=== PATIENT | female | born 1940 | race African-American/Black ===

== ENCOUNTER 2022-06-03 20:41 | Emergency (ER) | payer MEDICAID, MEDICARE ==
[~2022-06-03] VITALS: Ht 167.6 cm; Wt 63.0 kg
[~2022-06-03 20:41] MED LIST: CLOP75TA33; ENAL20TA18; FERR-71; LABE200T9; PRAZ2CAP2
[2022-06-04 07:15] VITALS: BP 150/90
== END 2022-06-04 07:50 | disposition home or self-care (01) ==
LOC: ER 20:41
DX: S00.83XA Contusion of other part of head, initial encounter (principal); W18.39XA Other fall on same level, initial encounter; Y93.89 Activity, other specified; Y92.89 Other specified places as the place of occurrence of the external cause; Y99.8 Other external cause status; I10 Essential (primary) hypertension; Z86.73 Personal history of transient ischemic attack (TIA), and cerebral infarction without residual deficits
CPT/HCPCS: 71045; 73620; 73630; 93005; 99285

== ENCOUNTER 2022-06-19 17:40 | Emergency (ER) | payer MEDICAID ==
[~2022-06-19] VITALS: Ht 160 cm; Wt 75.0 kg
[2022-06-19 17:55] VITALS: BP 148/97
[2022-06-19 20:33] LABS: BASOPHILS % 0.6 % (0.0-2.0); HEMATOCRIT. 33.2 % (36.0-48.0); HEMOGLOBIN. 10.1 g/dL (12.0-16.0); LYMPHOCYTES % 18.2 % (20.0-50.0); MEAN CORPUSCULAR HEMOGLOBIN 20.5 pg (28.0-32.0); MEAN CORPUSCULAR VOLUME 67.7 fL (81.0-99.0); MEAN PLATELET VOLUME 7.9 fl (7.4-10.4); MONOCYTES % 10.6 % (2.0-8.0); NEUTROPHILS % 68.6 % (40.0-76.0); PLATELET 347 x1000/uL (130-400); RED BLOOD CELL COUNT 4.91 mill/uL (4.2-5.4); RED CELL DISTRIBUTION WIDTH 17.4 % (11.6-14.6)
[2022-06-19 20:51] LABS: CHLORIDE 104 mEq/L (98-107)
[2022-06-19 21:20] LABS: PLATELET ESTIMATE NORMAL
[2022-06-19 23:05] LABS: CLARITY URINE CLEAR (CLEAR); COLOR URINE YELLOW (YELLOW); KETONES URINE TRACE (NEGATIVE); LEUKOCYTE ESTERASE URINE NEGATIVE (NEGATIVE); NITRITE URINE NEGATIVE (NEGATIVE); OCCULT BLOOD URINE NEGATIVE (NEGATIVE); PH URINE 5.5 (4.5-8.0); PROTEIN URINE 3+ (NEGATIVE); SPECIFIC GRAVITY URINE 1.019 (1.005-1.030)
[2022-06-19] MEDS ORDERED: METR-167 MT (23:27)
== END 2022-06-20 00:15 | disposition home or self-care (01) ==
LOC: ER 17:40
DX: N76.0 Acute vaginitis (principal); I10 Essential (primary) hypertension; E78.5 Hyperlipidemia, unspecified; F03.90 Unspecified dementia, unspecified severity, without behavioral disturbance, psychotic disturbance, mood disturbance, and anxiety; Z86.73 Personal history of transient ischemic attack (TIA), and cerebral infarction without residual deficits; Z20.822 Contact with and (suspected) exposure to COVID-19
CPT/HCPCS: 36415; 71045; 80053; 81003; 85025; 87426; 99284; C9803

== ENCOUNTER 2023-03-05 14:59 | Emergency (ER) | payer MEDICAID, MEDICARE, OTHER ==
[~2023-03-05] VITALS: Ht 172.7 cm; Wt 75.0 kg
[~2023-03-05 14:59] MED LIST changes: -FERR-71; +FERR325T6 MT
[2023-03-05] MEDS ORDERED: ONDANSETRON HCL 4MG/2ML INJ IV STA (15:35)
[2023-03-05] MEDS ORDERED: MORPHINE SULFATE 4 MG/ML CPJ (NOT FOR IM USE) IV STA (15:35)
[2023-03-05] MEDS ORDERED: SODIUM CHLORIDE 0.9% 500 ML IV ONE (15:45)
[2023-03-05 17:39] LABS: BASOPHILS % 0.1 % (0.0-2.0); HEMATOCRIT. 41.1 % (36.0-48.0); HEMOGLOBIN. 12.5 g/dL (12.0-16.0); LYMPHOCYTES % 8.2 % (20.0-50.0); MEAN CORPUSCULAR VOLUME 72.3 fL (81.0-99.0); MEAN PLATELET VOLUME 8.8 fl (7.4-10.4); MONOCYTES % 4.6 % (2.0-8.0); NEUTROPHILS % 87.1 % (40.0-76.0); PLATELET 194 x1000/uL (130-400); RED BLOOD CELL COUNT 5.69 mill/uL (4.2-5.4); RED CELL DISTRIBUTION WIDTH 18.2 % (11.6-14.6)
[2023-03-05 17:45] LABS: PROTHROMBIN TIME 11.2 sec (9.6-11.0)
[2023-03-05 17:46] LABS: CHLORIDE 103 mEq/L (98-107)
[2023-03-05 17:47] VITALS: BP 134/91
[2023-03-05] MEDS ORDERED: LEVOFLOXACIN 750MG PREMIX 150 ML IV ONE (18:15)
[2023-03-05] MEDS ORDERED: LEVO750T68 MT (18:41)
== END 2023-03-05 21:04 | disposition home or self-care (01) ==
LOC: ER 14:59
DX: J18.9 Pneumonia, unspecified organism (principal); F03.90 Unspecified dementia, unspecified severity, without behavioral disturbance, psychotic disturbance, mood disturbance, and anxiety; I10 Essential (primary) hypertension; Z86.73 Personal history of transient ischemic attack (TIA), and cerebral infarction without residual deficits
CPT/HCPCS: 36415; 71045; 74018; 80053; 83605; 83690; 84484; 85025; 85610; 96361; 96365; 99284; J1956; J7040; 99285

== ENCOUNTER 2023-12-27 15:40 | Emergency (ER) | payer MEDICARE, MEDICAID ==
[~2023-12-27] VITALS: Ht 160 cm; Wt 64.0 kg
[~2023-12-27 15:40] MED LIST changes: +ENAL-79; -ENAL20TA18; +LEVO750T68 MT
[2023-12-27 15:53] VITALS: O2SAT 100
[2023-12-27 16:28] VITALS: TEMP 97.7
[2023-12-27] MEDS: ACETAMINOPHEN 325MG TABLET PO ONE (16:35)
[2023-12-27 16:46] LABS: BASOPHILS % 0.9 % (0.0-2.0); DIFFERENTIAL COMMENT 0; EOSINOPHILS % 3.8 % (0.0-5.0); HEMATOCRIT. 30.3 % (36.0-48.0); HEMOGLOBIN. 9.2 g/dL (12.0-16.0); LYMPHOCYTES % 23.7 % (20.0-50.0); MEAN CORPUSCULAR HGB CONC 30.4 g/dL (31.0-37.0); MEAN CORPUSCULAR VOLUME 72.6 fL (81.0-99.0); MEAN PLATELET VOLUME 8.1 fl (7.4-10.4); MONOCYTES % 13.2 % (2.0-8.0); NEUTROPHILS % 58.4 % (40.0-76.0); PLATELET 248 x1000/uL (130-400); RED BLOOD CELL COUNT 4.18 mill/uL (4.2-5.4); RED CELL DISTRIBUTION WIDTH 16.7 % (11.6-14.6); WHITE BLOOD COUNT 6.5 x1000/uL (4.5-11.0)
[2023-12-27 16:58] LABS: ALANINE AMINOTRANSFERASE < 7 IU/L (10-49); ALBUMIN 3.6 g/dL (3.2-4.8); ASPARTATE AMINOTRANSFERASE 19 IU/L (<34); BILIRUBIN TOTAL 0.3 mg/dL (0.1-1.0); CALCIUM 9.2 mg/dL (8.7-10.4); CARBON DIOXIDE 30 mEq/L (21-32); CHLORIDE 103 mEq/L (98-107); CREATININE 0.7 mg/dL (0.6-1.0); GLUCOSE 80 mg/dL (70-105); POTASSIUM 3.8 mEq/L (3.5-5.1); PROTEIN TOTAL 7.6 g/dL (6.0-8.3); SODIUM 137 mEq/L (136-145); UREA NITROGEN BLOOD 12 mg/dL (9-23)
[2023-12-27 17:05] LABS: TROPONIN I HIGH SENSITIVITY 54 ng/L (3.0-34)
[2023-12-27] MEDS: ASPIRIN 81MG TABLET PO ONE (18:38)
[2023-12-27 19:17] LABS: TROPONIN I HIGH SENSITIVITY 67 ng/L (3.0-34)
[2023-12-27 21:25] VITALS: BP 152/97; PULSE 70; RESP 16
== END 2023-12-27 22:14 | disposition home or self-care (01) ==
LOC: ER 15:40 → EDBEDREQ 21:44 → EDBEDREQTM 21:44 → ER 22:14
DX: I71.43 Infrarenal abdominal aortic aneurysm, without rupture (principal); R79.89 Other specified abnormal findings of blood chemistry; I10 Essential (primary) hypertension; Z86.73 Personal history of transient ischemic attack (TIA), and cerebral infarction without residual deficits
CPT/HCPCS: 36415; 71045; 71275; 74174; 74176; 80053; 83880; 84484; 85025; 93005; 99291

== ENCOUNTER 2024-04-12 17:15 | Inpatient (IN) | payer MEDICARE, MEDICAID ==
[~2024-04-12] VITALS: Ht 170.2 cm; Wt 55.3 kg
[2024-04-12] MEDS: SODIUM CHLORIDE 0.9% 1000ML BAG (SEPSIS BOLUS) IV ONE (19:54)
[2024-04-12] MEDS: CEFTRIAXONE 1GM/50ML 50 ML IV ONE (19:56)
[2024-04-12 20:14] LABS: BASOPHILS % 0.8 % (0.0-2.0); EOSINOPHILS % 0.3 % (0.0-5.0); HEMATOCRIT. 34.7 % (36.0-48.0); HEMOGLOBIN. 10.6 g/dL (12.0-16.0); LYMPHOCYTES % 12.1 % (20.0-50.0); MEAN CORPUSCULAR HEMOGLOBIN 21.1 pg (28.0-32.0); MEAN CORPUSCULAR HGB CONC 30.7 g/dL (31.0-37.0); MEAN CORPUSCULAR VOLUME 68.8 fL (81.0-99.0); MEAN PLATELET VOLUME 8.2 fl (7.4-10.4); MONOCYTES % 7.7 % (2.0-8.0); NEUTROPHILS % 79.1 % (40.0-76.0); PLATELET 352 x1000/uL (130-400); RED BLOOD CELL COUNT 5.04 mill/uL (4.2-5.4); WHITE BLOOD COUNT 8.1 x1000/uL (4.5-11.0)
[2024-04-12] MEDS: LABETALOL 5MG/ML 4ML INJ IV NR (20:21)
[2024-04-12 20:23] LABS: CARBON DIOXIDE 28 mEq/L (21-32); CHLORIDE 105 mEq/L (98-107); POTASSIUM 3.4 mEq/L (3.5-5.1); SODIUM 139 mEq/L (136-145)
[2024-04-12] MEDS: VANCOMYCIN 1G PREMIX 200 ML IV SCH (20:24)
[2024-04-12 20:25] LABS: CALCIUM 9.5 mg/dL (8.7-10.4)
[2024-04-12 20:29] LABS: CREATININE 0.6 mg/dL (0.6-1.0); GLUCOSE 103 mg/dL (70-105)
[2024-04-12 20:30] LABS: UREA NITROGEN BLOOD 11 mg/dL (9-23)
[2024-04-12 20:36] LABS: ADD RBC MORPHOLOGY YES; DIFFERENTIAL COMMENT 1
[2024-04-12 23:14] LABS: ANISOCYTOSIS 2+; HYPOCHROMASIA 1+
[2024-04-12 23:15] LABS: MICROCYTOSIS 1+; PLATELET ESTIMATE NORMAL
[2024-04-13] MEDS ORDERED: ONDANSETRON HCL 4MG/2ML INJ IV PRN (02:15)
[2024-04-13] MEDS ORDERED: GUAIFENESIN 200MG/10ML SUGAR FREE UDC PO PRN (02:15)
[2024-04-13] MEDS ORDERED: DOCUSATE SODIUM 100MG CAPSULE PO PRN (02:15)
[2024-04-13] MEDS ORDERED: IPRATROPIUM/ALBUTEROL 0.5-3(2.5)MG/3ML NEB HHN PRN (02:15)
[2024-04-13] MEDS ORDERED: ACETAMINOPHEN 325MG TABLET PO PRN (02:15)
[2024-04-13] MEDS ORDERED: MAGNESIUM/ALUMINUM HYDROXIDE/SIMETHICONE 30ML UDC PO PRN (02:15)
[2024-04-13] MEDS: DEXT 5%/0.45% NACL 1000ML 1,000 ML IV SCH (03:24)
[2024-04-13] MEDS: KCL 20MEQ/100ML PREMIX 100 ML IV NR (03:40)
[2024-04-13] MEDS: PIPERACILLIN/TAZO 3.375G/50ML 50 ML IV SCH (06:12)
[2024-04-13 06:19] LABS: IRON 19 ug/dL (50-170)
[2024-04-13 06:20] LABS: TROPONIN I HIGH SENSITIVITY 21 ng/L (3.0-34)
[2024-04-13 06:22] LABS: CREATINE KINASE 160 IU/L (34-145); PHOSPHORUS 2.4 mg/dL (2.5-4.9); TOTAL IRON BINDING CAPACITY 207 ug/dl (250-425)
[2024-04-13 06:26] LABS: FERRITIN 75 ng/mL (10-291)
[2024-04-13 06:27] LABS: FOLIC ACID (FOLATE) SERUM > 20.00 ng/mL (>5.38); VITAMIN B12 SERUM 752 pg/mL (211-911)
[2024-04-13 07:55] LABS: PROTHROMBIN TIME 11.3 sec (9.6-11.0)
[2024-04-13] MEDS ORDERED: IOHEXOL-350 100 ML BOTTLE ONE (08:45)
[2024-04-13] MEDS: CLONIDINE 0.1MG TABLET PO PRN (09:16)
[2024-04-13 11:33] VITALS: BP 165/110; PULSE 83; RESP 14; TEMP 97.7
[2024-04-13] MEDS: PANTOPRAZOLE SODIUM 40 MG/VIAL IV SCH (11:34)
[2024-04-13] MEDS: LOSARTAN 25 MG TABLET PO SCH (11:34)
[2024-04-13] MEDS: LABETALOL HCL 200MG TABLET PO SCH (11:35)
[2024-04-13] MEDS: VANCOMYCIN 500MG/100ML IV SCH (11:57)
[2024-04-13] MEDS: HYDRALAZINE 20MG/ML VIAL IV PRN (12:39)
[2024-04-13] MEDS: LOSARTAN 25 MG TABLET PO NR (12:40)
[2024-04-13] MEDS: POTASSIUM PHOSPHATE 15 MMOL in DEXT 5% WATER 245 ML IV NR (12:44)
[2024-04-13] MEDS: MAGNESIUM 2 G PREMIX 50 ML IV NR (13:41)
[2024-04-13 14:10] VITALS: BP 163/98; PULSE 83; RESP 14; TEMP 97.1
[2024-04-13] MEDS ORDERED: CLOB15OI21 TP (15:52)
[2024-04-13] MEDS ORDERED: ASPI-1406 PO (15:52)
[2024-04-13] MEDS ORDERED: FURO20TA4 PO (15:52)
[2024-04-13 15:54] LABS: TROPONIN I HIGH SENSITIVITY 31 ng/L (3.0-34)
[2024-04-13 15:55] LABS: CREATINE KINASE 253 IU/L (34-145)
[2024-04-13 16:00] VITALS: BP 121/79; PULSE 70; RESP 18; TEMP 97.7
[2024-04-13] MEDS: FERROUS SULFATE 325MG TABLET PO SCH (16:52)
[2024-04-13 19:29] LABS: CLARITY URINE CLEAR (CLEAR); COLOR URINE YELLOW (YELLOW); GLUCOSE URINE NEGATIVE (NEGATIVE); KETONES URINE NEGATIVE (NEGATIVE); LEUKOCYTE ESTERASE URINE NEGATIVE (NEGATIVE); NITRITE URINE NEGATIVE (NEGATIVE); OCCULT BLOOD URINE NEGATIVE (NEGATIVE); PH URINE 6.5 (4.5-8.0); PROTEIN URINE TRACE (NEGATIVE); SPECIFIC GRAVITY URINE 1.047 (1.005-1.030)
[2024-04-13 19:59] LABS: BACTERIA URINE 1+; RBC URINE 0-2 /hpf (0-2); SQUAMOUS EPITHELIAL CELL URINE FEW /lpf (RARE/1+); WBC URINE 0-2 /hpf (0-2)
[2024-04-13 20:00] VITALS: BP 100/65; PULSE 63; RESP 19; TEMP 98.1
[2024-04-13 20:16] LABS: *AMPHETAMINES SCREEN URINE NEGATIVE (NEGATIVE); *BARBITURATES SCREEN URINE NEGATIVE (NEGATIVE); *BENZODIAZEPINES SCREEN URINE NEGATIVE (NEGATIVE)
[2024-04-13 20:17] LABS: *COCAINE SCREEN URINE NEGATIVE (NEGATIVE); CANNABINOID URINE SCREEN NEGATIVE (NEGATIVE); ECSTASY MDMA SCREEN URINE NEGATIVE (NEGATIVE); METHADONE URINE SCREEN NEGATIVE (NEGATIVE); OPIATES URINE SCREEN NEGATIVE (NEGATIVE); PHENCYCLIDINE URINE SCREEN NEGATIVE (NEGATIVE)
[2024-04-13 21:34] LABS: ALANINE AMINOTRANSFERASE 9 IU/L (10-49); ASPARTATE AMINOTRANSFERASE 26 IU/L (<34); PHOSPHORUS 3.9 mg/dL (2.5-4.9)
[2024-04-13 21:35] LABS: AMMONIA < 17 uMol/L (<32)
[2024-04-13] MEDS ORDERED: HYDRALAZINE HCL 25MG TABLET PO SCH (22:00)
[2024-04-14] VITALS (7 sets, daily range): BP systolic 101–131; BP diastolic 67–82; PULSE 55–134; RESP 18–20; TEMP 96.3–98
[2024-04-14 06:04] LABS: CHLORIDE 106 mEq/L (98-107); POTASSIUM 3.8 mEq/L (3.5-5.1); SODIUM 136 mEq/L (136-145)
[2024-04-14 06:05] LABS: CALCIUM 8.4 mg/dL (8.7-10.4); CARBON DIOXIDE 23 mEq/L (21-32)
[2024-04-14 06:10] LABS: CREATININE 0.6 mg/dL (0.6-1.0); GLUCOSE 94 mg/dL (70-105); TRIGLYCERIDE 97 mg/dL (0-150); UREA NITROGEN BLOOD 10 mg/dL (9-23)
[2024-04-14 06:11] LABS: LDL CHOLESTEROL 57 mg/dL (5-100)
[2024-04-14 06:12] LABS: CHOLESTEROL 98 mg/dL (<200); CREATINE KINASE 385 IU/L (34-145); HDL CHOLESTEROL 24 mg/dL (>65)
[2024-04-14 06:14] LABS: BASOPHILS % 0.4 % (0.0-2.0); EOSINOPHILS % 1.7 % (0.0-5.0); HEMATOCRIT. 31.3 % (36.0-48.0); HEMOGLOBIN. 9.5 g/dL (12.0-16.0); LYMPHOCYTES % 12.9 % (20.0-50.0); MEAN CORPUSCULAR HGB CONC 30.4 g/dL (31.0-37.0); MEAN PLATELET VOLUME 8.7 fl (7.4-10.4); MONOCYTES % 8.3 % (2.0-8.0); NEUTROPHILS % 76.7 % (40.0-76.0); PLATELET 289 x1000/uL (130-400); RED BLOOD CELL COUNT 4.53 mill/uL (4.2-5.4); RED CELL DISTRIBUTION WIDTH 17.2 % (11.6-14.6); THYROID STIMULATING HORMONE 3.37 uIU/mL (0.55-4.78); WHITE BLOOD COUNT 8.7 x1000/uL (4.5-11.0)
[2024-04-14 06:44] LABS: DIFFERENTIAL COMMENT 1
[2024-04-14] MEDS: LOSARTAN 50 MG TABLET PO SCH (08:22)
[2024-04-14] MEDS: DEXT 5%/0.45% NACL 1000ML 1,000 ML IV SCH (12:01)
[2024-04-15] VITALS (7 sets, daily range): BP systolic 117–150; BP diastolic 81–105; PULSE 78–96; RESP 17–18; TEMP 97.1–99.5; O2SAT 97
[2024-04-15 06:40] LABS: CARBON DIOXIDE 20 mEq/L (21-32); CHLORIDE 107 mEq/L (98-107); POTASSIUM 3.9 mEq/L (3.5-5.1); SODIUM 135 mEq/L (136-145)
[2024-04-15 06:42] LABS: CALCIUM 8.1 mg/dL (8.7-10.4)
[2024-04-15 06:44] LABS: BASOPHILS % 0.8 % (0.0-2.0); EOSINOPHILS % 2.9 % (0.0-5.0); HEMOGLOBIN. 9.3 g/dL (12.0-16.0); LYMPHOCYTES % 14.1 % (20.0-50.0); MEAN CORPUSCULAR HEMOGLOBIN 20.6 pg (28.0-32.0); MEAN CORPUSCULAR VOLUME 68.7 fL (81.0-99.0); MEAN PLATELET VOLUME 8.5 fl (7.4-10.4); MONOCYTES % 9.3 % (2.0-8.0); NEUTROPHILS % 72.9 % (40.0-76.0); PLATELET 277 x1000/uL (130-400); RED BLOOD CELL COUNT 4.51 mill/uL (4.2-5.4); RED CELL DISTRIBUTION WIDTH 17.1 % (11.6-14.6); WHITE BLOOD COUNT 6.8 x1000/uL (4.5-11.0)
[2024-04-15 06:46] LABS: CREATININE 0.6 mg/dL (0.6-1.0); GLUCOSE 75 mg/dL (70-105)
[2024-04-15 06:47] LABS: UREA NITROGEN BLOOD 8 mg/dL (9-23)
[2024-04-15 07:03] LABS: DIFFERENTIAL COMMENT 1
[2024-04-15 07:10] LABS: ADD RBC MORPHOLOGY NO
[2024-04-15] MEDS: THIAMINE HCL 100MG TABLET PO SCH (09:30)
[2024-04-15] MEDS ORDERED: LOSA50TA41 PO (13:35)
[2024-04-15] MEDS ORDERED: PANT20TA17 PO (13:35)
[2024-04-15] MEDS ORDERED: THIA100T72 PO (13:35)
[2024-04-15] MEDS ORDERED: TOPUD PO (13:35)
[2024-04-15] MEDS ORDERED: MULT-1146 PO (13:47)
[2024-04-15] MEDS ORDERED: FE300LUD PO ×2 (14:21→14:23)
[2024-04-15] MEDS: ACETAMINOPHEN 325MG TABLET PO PRN (17:40)
== END 2024-04-15 20:11 | disposition home health service (06) | DRG 871 ==
LOC: ER 17:15 → 5WST 22:54 → EDBEDREQTM 22:57 → EDBEDREQSVC 22:57 → EDBEDREQ 22:57 → 8WST 04-13 11:14
PROVIDERS: ADMIT Internal Medicine; ATTEND Internal Medicine
DX: A41.9 Sepsis, unspecified organism (principal); L89.213 Pressure ulcer of right hip, stage 3; L89.514 Pressure ulcer of right ankle, stage 4; G93.40 Encephalopathy, unspecified; M48.54XA Collapsed vertebra, not elsewhere classified, thoracic region, initial encounter for fracture; I82.511 Chronic embolism and thrombosis of right femoral vein; I73.9 Peripheral vascular disease, unspecified; I71.43 Infrarenal abdominal aortic aneurysm, without rupture; I35.0 Nonrheumatic aortic (valve) stenosis; I10 Essential (primary) hypertension; D50.9 Iron deficiency anemia, unspecified; E87.6 Hypokalemia; F03.90 Unspecified dementia, unspecified severity, without behavioral disturbance, psychotic disturbance, mood disturbance, and anxiety; Z20.822 Contact with and (suspected) exposure to COVID-19; R13.10 Dysphagia, unspecified; N28.1 Cyst of kidney, acquired; K80.20 Calculus of gallbladder without cholecystitis without obstruction; Z82.49 Family history of ischemic heart disease and other diseases of the circulatory system; Z79.899 Other long term (current) drug therapy; Z79.82 Long term (current) use of aspirin; Z79.02 Long term (current) use of antithrombotics/antiplatelets
CPT/HCPCS: 36415; 71045; 71275; 74174; 75635; 80048; 80061; 80202; 80305; 81003; 82140; 82550; 82607; 82728; 82746; 83540; 83550; 83605; 83735; 83880; 84100; 84145; 84439; 84443; 84450; 84460; 84484; 85025; 87426; 92610; 93005; 93306; 93970; 99291; C9113; J0360; J0696; J2543; J3370; J3475; J3480; J3490; J7030; J7060; Q9967